=== PATIENT | female | born 1980 | race African-American/Black ===

== ENCOUNTER 2021-08-24 10:35 | Emergency (ER) | payer OTHER ==
[~2021-08-24] VITALS: Ht 175.3 cm; Wt 91.0 kg
[2021-08-24] MEDS ORDERED: ACETAMINOPHEN 325MG TABLET PO ONE (11:00)
[2021-08-24] MEDS ORDERED: IBUPROFEN 600MG TABLET PO ONE (11:00)
[2021-08-24 12:14] VITALS: BP 166/111
[2021-08-24] MEDS ORDERED: KETOROLAC 30MG/ML VIAL IM ONE (12:15)
[2021-08-24] MEDS ORDERED: NAPR-1176 MT (13:37)
== END 2021-08-24 13:53 | disposition home or self-care (01) ==
LOC: ER 10:35
DX: M54.50 Low back pain, unspecified (principal); W10.8XXA Fall (on) (from) other stairs and steps, initial encounter; Y93.89 Activity, other specified; Y92.018 Other place in single-family (private) house as the place of occurrence of the external cause
CPT/HCPCS: 72100; 81025; 96372; 99283; J1885